=== PATIENT | female | born 1945 | race Asian ===

== ENCOUNTER → 2019-07-07 | Outpatient (CLI) | payer MEDICAID ==
--- NOTE | 2019-07-07 10:16 | CARD ---
MR#: [id number] Date of Study: 07/07/2019 Ordering Physician: INGRID DUNHAM, Referring Physician: INGRID DUNHAM, Tech: Anu Hunt KARLA APPROVED REPORT EXAM: Two-dimensional and M-mode echocardiogram with Doppler and color Doppler. Other Information Quality : Good Rhythm : Atrial Fibrillation INDICATION Non-Ischemic Cardiomyopathy, ICD 2D DIMENSIONS RVDd2.0 (2.9-3.5cm)Left Atrium(2D)3.2 (1.6-4.0cm) IVSd0.7 (0.7-1.1cm)Aortic Root(2D)2.6 (2.0-3.7cm) LVDd5.5 (3.9-5.9cm)LVOT Diameter2.1 (1.8-2.4cm) PWd0.7 (0.7-1.1cm)LVDs3.7 (2.5-4.0cm) FS (%) 33.1 %SV90.8 ml LVEF(%)61.1 (>50%) Aortic Valve AoV Peak Jt.120.4cm/sAoV VTI21.8cm AO Peak GR.5.8mmHgLVOT Peak Jt.74.1cm/s LVOT VTI 15.35cmAO Mean GR.3mmHg VIJAY (VMAX)2.69df6ESW (VTI)2.47cm2 Mitral Valve MV E Eergrecb385.9cm/sMV DECEL UHCV779ar MV BZD00eaBXS (PHT)7.15cm2 TDI E/Lateral E'22.1E/Medial E'29.7 Tricuspid Valve TR P. Mawpfeee376do/sRAP BTHMFAKW7gkSq TR Peak Gr.77chLlUQGI68ocKc Pulmonary Vein S1 Domuheyp49.8cm/sD2 Tnazmdfe67.1cm/s LEFT VENTRICLE The left ventricle is normal size. There is normal left ventricular wall thickness. The left ventricu lar systolic function is normal and the ejection fraction is within normal range. The Ejection Fracti on is 55-60%. Apical motion consistent with pacemaker activation. The left ventricular diastolic func tion and filling is normal for age. No left ventricle thrombus noted on this study. RIGHT VENTRICLE The right ventricle is normal size. The right ventricular systolic function is normal. There is a pac emaker lead in the right ventricle. ATRIA The left atrium size is normal. The right atrium size is normal. A pacemaker is seen in the right atr ium consistent with history. The interatrial septum is intact with no evidence for an atrial septal d efect or patent foramen ovale as noted on 2-D or Doppler imaging. AORTIC VALVE The aortic valve is calcified but opens well. Doppler and Color Flow revealed no significant aortic r egurgitation. There is no significant aortic valvular stenosis. MITRAL VALVE The mitral valve is calcified but opens well. There is no evidence of mitral valve prolapse. There is no mitral valve stenosis. Doppler and Color-flow revealed mild mitral regurgitation. TRICUSPID VALVE The tricuspid valve is normal in structure and function. Doppler and Color Flow revealed trace to mil d tricuspid regurgitation. The PA pressure was estimated at 27 mmHg. There is no tricuspid valve sten osis. PULMONIC VALVE The pulmonic valve is not well visualized. Doppler and Color Flow revealed no pulmonic valvular regur gitation. There is no pulmonic valvular stenosis. GREAT VESSELS The aortic root is normal in size. The ascending aorta is normal in size. The IVC is normal in size a nd collapses >50% with inspiration. PERICARDIAL EFFUSION There is no evidence of significant pericardial effusion. Critical Notification Critical Value: No <Conclusion> The left ventricular systolic function is normal and the ejection fraction is within normal range. Th e Ejection Fraction is 55-60%. Apical motion consistent with pacemaker activation. There is a pacemaker lead in the right ventricle. Signed by : Ingrid Dunham, Electronically Approved : 07/07/2019 10:15:56
== END | disposition home or self-care (01) ==
LOC: MERGE 09:00 → ECHO 09:03
PROVIDERS: ATTEND Internal Medicine Cardiovascular Disease
DX: I08.3 Combined rheumatic disorders of mitral, aortic and tricuspid valves (principal); I42.9 Cardiomyopathy, unspecified; I48.91 Unspecified atrial fibrillation; Z95.0 Presence of cardiac pacemaker
CPT/HCPCS: 93306

== ENCOUNTER → 2019-07-24 | Outpatient (CLI) | payer MEDICAID ==
[~2019-07-24] MED LIST: CARV25TA PO; METF10007 PO; SIMV40TA18 PO
--- NOTE | 2019-07-24 17:06 | RAD ---
CT study of the abdomen and pelvis without contrast Clinical indications: Right upper quadrant pain. COMPARISON: None available. TECHNIQUE: Noncontrast helical CT scanning of the abdomen and pelvis was performed. Without contrast, sensitivity to detect organ pathology and GI tract pathology is decreased. PQRS compliance Statement One or more of the following individualized dose reduction techniques were utilized for this study: 1. Automated exposure control 2. Adjustment of the mA and/or kV according to patient size 3. Use of iterative reconstruction technique FINDINGS: The liver and spleen and pancreas are unremarkable on this noncontrast study. Small gallstones are seen within the fundus of the gallbladder. The gallbladder is distended measuring almost 14 cm in length. No gallbladder wall thickening is evident. No extrahepatic biliary ductal dilatation is seen. No adrenal mass is evident. No hydronephrosis or hydroureter or urinary tract stone is evident. Urinary bladder wall is smooth. No renal mass is seen on either side on this noncontrast study. Sigmoid diverticulosis is seen without diverticulitis. There are no CT findings of appendicitis. Terminal ileum is unremarkable. No obstructive bowel pattern is evident. No free air or free fluid or mesenteric edema is evident. No lung base consolidation is evident. No lytic process is seen. Surgical hardware is seen within the proximal femur. IMPRESSION: Distended gallbladder with cholelithiasis. Electronically signed by: Stephen Mclain MD (07/24/2019 5:03 PM) [id number]
== END | disposition home or self-care (01) ==
LOC: CT 16:14
PROVIDERS: ATTEND Nurse Practitioner Gerontology
DX: K80.20 Calculus of gallbladder without cholecystitis without obstruction (principal); K82.8 Other specified diseases of gallbladder; K57.30 Diverticulosis of large intestine without perforation or abscess without bleeding
CPT/HCPCS: 74176

== ENCOUNTER 2019-08-07 08:44 | Outpatient (CLI) | payer MEDICAID ==
[~2019-08-07] VITALS: Ht 157.5 cm; Wt 62.6 kg
[2019-08-07] VITALS (11 sets, daily range): BP systolic 112–173; BP diastolic 66–86
[2019-08-07] MEDS ORDERED: BACITRACIN 50,000 UNIT in IV NORMAL SALINE 250ML 250 ML IRR ONE (09:00)
[2019-08-07] MEDS ORDERED: CARV25TA PO (09:05)
[2019-08-07] MEDS ORDERED: SIMV40TA3 PO (09:05)
[2019-08-07] MEDS ORDERED: METF10007 PO (09:05)
[2019-08-07 09:21] LABS: CALCIUM 9.3 mg/dL (8.5-10.1); CREATININE 0.8 mg/dL (0.6-1.0); GFR 69.9; HEMATOCRIT 41.8 % (36.0-47.0); HEMOGLOBIN 14.1 g/dL (12.0-15.5); RED BLOOD COUNT 4.5 x10^6/uL (3.50-5.40); RED CELL DISTRIBUTION WIDTH 13.6 % (11.5-14.5); WHITE BLOOD COUNT 7.6 x10^3/uL (4.0-11.0)
[2019-08-07 09:34] LABS: PROTHROMBIN TIME PATIENT 12.6 SEC (11.7-14.0)
--- NOTE | 2019-08-07 09:36 | EKG ---
[facility] [address] [place] [address] Test Date: 2019-08-07 Test Time: 09:26:11 Pat Name: GORGE CONKLIN Department: Room: Gender: F Manager Office: [facility] : 1945 Requested By: INGRID DUNHAM Order Number: [id number] Reading MD: Measurements Intervals [place] Rate: 88 P: AR: QRS: -45 QRSD: 94 T: 34 QT: 416 QTc: 507 Interpretive Statements ACCELERATED JUNCTIONAL RHYTHM ABNORMAL LEFT AXIS DEVIATION LEFT ANTERIOR FASCICULAR BLOCK CONSIDER LEFT VENTRICULAR HYPERTROPHY PROLONGED QT ABNORMAL ECG RI6.01 Unconfirmed report No previous ECG available for comparison
[2019-08-07] MEDS ORDERED: LIDOCAINE 2%/EPI 1:100,000 20 ML VIAL. ONE (10:01)
[2019-08-07] MEDS ORDERED: fentaNYL PF VIAL 100 MCG/2 ML VIAL ONE (10:15)
[2019-08-07] MEDS ORDERED: MIDAZOLAM HCL/PF 2 MG/2 ML VIAL. ONE (10:15)
[2019-08-07] MEDS ORDERED: fentaNYL PF VIAL 100 MCG/2 ML VIAL IV ONE (10:45)
[2019-08-07] MEDS ORDERED: LIDOCAINE 2%/EPI 1:100,000 20 ML VIAL. IJ ONE (10:45)
[2019-08-07] MEDS ORDERED: MIDAZOLAM HCL/PF 2 MG/2 ML VIAL. IV ONE (10:45)
--- NOTE | 2019-08-07 11:28 | PDOC ---
MODERATE SEDATION ASSESSMENT RISKS/ALTERNATIVES Risks/Alternatives Risks and alternatives of this type of sedation and procedure discussed with: RISK/ALTERNATIVES: Patient H & P ON CHART H & P H & P on chart and reviewed for co-morbid conditions and appropriate labs. H&P ON CHART: Yes STATUS PREG STATUS ASSESSED: N/A MEDS/ALLERGIES REVIEWED Meds/Allergies Reviewed Medications and Allergies including time and route of recently administered narcotics and sedatives. MEDS/ALLERGIES REVIEWED: Yes ASA RATING ASA RATING: III AIRWAY ASSESSMENT Airway Assessment Airway patency, oral function limitations, presence of caps, crowns, dentures, partials, and ability to extend neck assessed. AIRWAY ASSESSMENT: Yes MALLAMPATI SCORE MALLAMPATI SCORE: II PRE-SEDATION ASSESSMENT PRE-SEDATION ASSESSMENT: Yes HAKEEM العراقي MD Aug 07, 2019 11:28
[2019-08-07] MEDS ORDERED: NO ANTICOAGULANT THERAPY. MC PRN (11:30)
--- NOTE | 2019-08-07 11:34 | CARD ---
MR#: [id number] Date of Study: 08/07/2019 Ordering Physician: INGRID DUNHAM, Referring Physician: INGRID DUNHAM, Tech: APPROVED REPORT PROCEDURES Successful Medtronic single-chamber automated implantable cardioverter defibrillator generator change FLOURO TIME 0.1 MINUTES DOSE .26 gycm2 MODERATE SEDATION 39 MINUTES INDICATIONS Nonischemic cardiomyopathy s/p AICD implantation presenting with battery depletion PROCEDURE After explaining the risks, benefits, and alternative options, informed consent was obtained from the patient. The patient was brought to the cardiac catheterization lab and the left chest and shoulder were prepp ed and draped in a sterile manner. 30 mL of 2% lidocaine was infiltrated into the skin and subcutaneous tissues for local anesthesia. An incision was made over the previous scar and using blunt dissection and cautery the pocket was opene d, the capsule exposed and opened and the previously placed generator removed from the pocket. The ri ght ventricular lead was detached from the generator, interrogated, found to functioning well and maggi ttached to a Medtronic single chamber AICD generator model [id number] serial number [id number]. this was placed in the pocket that was subsequently closed in 3 layers. Hemostasis was secured. Patient terrie ated the procedure well. There were no immediate complications. CONCLUSION Successful Medtronic AICD generator change for battery depletion. Signed by : Carter Moreira, Electronically Approved : 08/07/2019 11:33:35
--- NOTE | 2019-08-07 14:23 | NUR ---
Discharge Note: GORGE CONKLIN Discharge instructions and discharge home medications reviewed with Patient and a copy given. All questions have been answered and understanding verbalized. The following instructions and handouts were given: Moderate sedation, incision care Discontinued lines and drains: Peripheral IV intact. Patient discharged to Home or Self Care with Family Member via Wheelchair
== END 2019-08-07 14:15 | disposition home or self-care (01) ==
LOC: CCL 08:44
PROVIDERS: ATTEND Internal Medicine Cardiovascular Disease
DX: T82.121A Displacement of cardiac pulse generator (battery), initial encounter (principal); I11.0 Hypertensive heart disease with heart failure; I50.9 Heart failure, unspecified; M10.9 Gout, unspecified; Z87.39 Personal history of other diseases of the musculoskeletal system and connective tissue; Z95.810 Presence of automatic (implantable) cardiac defibrillator; Z87.891 Personal history of nicotine dependence; Y83.8 Other surgical procedures as the cause of abnormal reaction of the patient, or of later complication, without mention of misadventure at the time of the procedure; Y92.89 Other specified places as the place of occurrence of the external cause; Z79.01 Long term (current) use of anticoagulants
CPT/HCPCS: 33262; 36415; 80048; 85027; 85610; 93005; 99152; 99153; C1722; J0690; J2250; J3010; J3490; J7050; J7030

== ENCOUNTER → 2019-08-11 | Outpatient (CLI) | payer MEDICAID ==
[2019-08-07 13:55] VITALS: BP 112/68
[~2019-08-11] MED LIST changes: -SIMV40TA18 PO; +SIMV40TA3 PO
--- NOTE | 2019-08-11 15:45 | RAD ---
EXAM: Chest, 2 views HISTORY: Abnormal tuberculin skin test. COMPARISON: None. FINDINGS: 2 views of the chest are obtained. There is no infiltrate, pleural effusion or pneumothorax. There is nodular opacity overlying the right upper lobe likely due to a prominent first rib end. There is suspected left bilateral basilar atelectasis or scarring. The heart is normal in size. There is a cardiac pacemaker defibrillator in expected position. There is hyperinflation due to inspiratory effort or emphysema. There are chronic appearing thoracic wedge compression fractures. IMPRESSION: No acute pulmonary finding. Electronically signed by: Merlyn Garrett MD (08/11/2019 3:42 PM) [place] [id number]
== END | disposition home or self-care (01) ==
LOC: RAD 14:19
PROVIDERS: ATTEND Nurse Practitioner Gerontology
DX: R76.11 Nonspecific reaction to tuberculin skin test without active tuberculosis (principal)
CPT/HCPCS: 71046

== ENCOUNTER → 2019-11-06 | Outpatient (CLI) | payer MEDICAID ==
[2019-08-07 13:55] VITALS: BP 112/68
[~2019-11-06] MED LIST changes: +SIMV40TA18 PO; -SIMV40TA3 PO
--- NOTE | 2019-11-06 19:53 | KCIC ---
Bilateral digital screening mammograms: Reason for examination: Routine screening. Comparison is made to previous study dated 03/24/2008. Interpretation was made with the benefit of CAD. A pacemaker is present on the left. The skin and nipples show no abnormalities. No abnormal axillary lymph nodes are seen. The breast parenchyma shows scattered fibroglandular density. (Breast density: Category B.) There are no dominant masses, suspicious calcifications or architectural distortions. Impression: No evidence of malignancy. Recommend routine screening. BI-RADS Category 1: Negative. "Our facility is accredited by the [employer] Mammography Program." This patient's information has been entered into a reminder system for the patient to be notified with the results of her examination and a target date for the next mammogram. Electronically signed by: Jenna Perez MD (11/06/2019 7:50 PM) [id number]
== END | disposition home or self-care (01) ==
LOC: KCIC MAMMO 15:31
PROVIDERS: ATTEND Family Medicine
DX: Z12.31 Encounter for screening mammogram for malignant neoplasm of breast (principal)
CPT/HCPCS: 77067

== ENCOUNTER 2019-12-01 06:31 | Day surgery (SDC) | payer MEDICAID ==
[~2019-12-01] VITALS: Ht 152.4 cm; Wt 61.5 kg
[~2019-12-01 06:31] MED LIST changes: +ACETAMINOPHEN 500 MG TABLET PO ONE; +ceFAZolin SODIUM IV Push 1 GM VIAL. IVP ONE
[2019-12-01] MEDS ORDERED: HYDROmorphone 2 MG/ML VIAL IV PRN (07:00)
[2019-12-01] MEDS ORDERED: IV RINGERS,LACTATED 1000ML 1,000 ML IV SCH (07:00)
[2019-12-01] MEDS ORDERED: fentaNYL PF VIAL 100 MCG/2 ML VIAL IV PRN (07:00)
[2019-12-01] MEDS ORDERED: MORPHINE SULFATE 2 MG/ML VIAL. IV PRN (07:00)
[2019-12-01] MEDS ORDERED: LIDOCAINE 1% PF 2 ML VIAL. ID PRN (07:00)
[2019-12-01] MEDS ORDERED: PROCHLORPERAZINE 10 MG/2 ML VIAL. IV PRN (07:00)
[2019-12-01] MEDS ORDERED: ONDANSETRON PF 4 MG/2 ML VIAL. IV PRN (07:00)
[2019-12-01] MEDS ORDERED: INSULIN LISPRO 100 UNIT/ML 3ML VIAL for OP,RR ONLY. SQ PRN (07:00)
[2019-12-01] MEDS ORDERED: BUPIVACAINE-EPI 0.25%-1:200000 MPF 30 ML VIAL. ONE (07:13)
[2019-12-01] MEDS ORDERED: IOHEXOL 300 MG/ML 50 ML VIAL. ONE (07:14)
[2019-12-01] MEDS ORDERED: SURGICEL HEMOSTAT 4X8 EACH. ONE (07:14)
[2019-12-01 07:24] LABS: CALCIUM 9.1 mg/dL (8.5-10.1); GFR 54.1
[2019-12-01] MEDS ORDERED: fentaNYL PF VIAL 100 MCG/2 ML VIAL ONE (07:27)
[2019-12-01] MEDS ORDERED: ROCURONIUM 50 MG/5 ML VIAL. ONE (07:27)
[2019-12-01] MEDS ORDERED: PROPOFOL 20 ML IV ONE (07:27)
[2019-12-01] MEDS ORDERED: DEXAMETHASONE SOD PHOS 4 MG/ML VIAL ONE (07:27)
[2019-12-01] MEDS ORDERED: ONDANSETRON PF 4 MG/2 ML VIAL. ONE (07:27)
[2019-12-01] MEDS ORDERED: LIDOCAINE 2% PF 5 ML VIAL. ONE (07:27)
[2019-12-01 07:30] LABS: ALBUMIN/GLOBULIN RATIO 1.1 (1.0-1.7); TOTAL BILIRUBIN 0.5 mg/dL (0.2-1.0); TOTAL PROTEIN 7.5 g/dL (6.4-8.2)
[2019-12-01 07:36] LABS: BASO % 1 % (0-3); EOS # 0.2 x10^3/uL (0.0-0.7); EOS % 4 % (0-3); HEMATOCRIT 41.2 % (36.0-47.0); HEMOGLOBIN 13.9 g/dL (12.0-15.5); LYMPH # 1.7 x10^3/uL (1.0-4.8); LYMPH % 32 % (24-48); MEAN CORPUSCULAR HEMOGLOBIN 32 pg (25-35); MEAN CORPUSCULAR HGB CONC 34 g/dL (31-37); MEAN CORPUSCULAR VOLUME 94 fL (79-100); MONO # 0.4 x10^3/uL (0.0-1.1); MONO % 8 % (0-9); NEUT # 2.9 x10^3/uL (1.8-7.7); NEUT % 56 % (31-73); PLATELET COUNT 239 x10^3/uL (140-400); RED BLOOD COUNT 4.39 x10^6/uL (3.50-5.40); RED CELL DISTRIBUTION WIDTH 13.5 % (11.5-14.5); WHITE BLOOD COUNT 5.3 x10^3/uL (4.0-11.0)
--- NOTE | 2019-12-01 08:03 | EKG ---
[facility] [address] [place] [address] Test Date: 2019-12-01 Test Time: 07:50:00 Pat Name: GORGE CONKLIN Department: Room: Gender: F Ui Programmer: MAIRBEL : 1945 Requested By: BRIANDA MCGOVERN Order Number: [id number] Reading MD: Measurements Intervals [place] Rate: 75 P: 47 MN: 222 QRS: -38 QRSD: 96 T: 14 QT: 374 QTc: 420 Interpretive Statements SINUS RHYTHM PROLONGED MN INTERVAL ABNORMAL LEFT AXIS DEVIATION LEFT ANTERIOR FASCICULAR BLOCK CONSIDER LEFT VENTRICULAR HYPERTROPHY ABNORMAL ECG RI6.01 Compared to ECG 08/07/2019 09:26:11 First degree AV block now present Left-axis deviation now present Left anterior fascicular block now present Prolonged QT interval no longer present
[2019-12-01] MEDS ORDERED: NEOSTIGMINE METHYLSULFATE 5 MG/5 ML SYRINGE. ONE (08:46)
[2019-12-01] MEDS ORDERED: GLYCOPYRROLATE 1 MG/5 ML VIAL. ONE (08:46)
[2019-12-01] MEDS ORDERED: SEVOFLURANE 31 TO 60 MINUTES. IH ONE (08:48)
--- NOTE | 2019-12-01 08:50 | PDOC4 ---
Operative Note Operative Note Date: 12/01/2019 Preoperative diagnosis: Chronic cholecystitis Postoperative diagnosis: Same Procedure: Laparoscopic cholecystectomy Surgeon: William Specimen: Gallbladder Dictation: Patient is a 74-year-old female who's had right upper quadrant abdominal pain postprandial nausea and ultrasound showing gallstones. The proc edure of laparoscopic cholecystectomy was explained to the patient and her family in detail risks benefits were also discussed including bleeding infection injury to intra-abdominal contents possibly necessitating further or open operations alternatives to this procedure also discussed with the patient who seemed to understand and gave both verbal and written consent had the procedure performed. Patient was taken to the operating room placed in supine position general anesthesia was initiated once patient was sleep and intubated her abdomen was prepped and draped usual sterile fashion using ChloraPrep. An area just below the umbilicus was injected with quarter percent Marcaine with epinephrine incision was made with an 11 blade scalpel and a varies needle was placed within the abdomen creating pneumoperitoneum once this was complete 11 mm port was placed and a 5 mm camera was placed within the abdomen and inspected no other abdomen maladies were noted. A 5 mm port was placed in the epigastrium a 5 mm port was placed in the right mid abdomen and a port was placed in the right lateral abdomen. The dome of the gallbladder is grasped retracted cephalad the infundibulum of gallbladder is grasped retracted laterally exposing the triangle adherent tissues of the triangle were taken down with blunt and sharp dissection exposing the cystic duct and cystic artery both were doubly clipped and tra nsected the gallbladder was taken off the liver with hook electrocautery placed in Endo Catch bag and removed from the umbilicus right upper quadrant was irrigated and suctioned dry hemostasis deemed to be appropriate and the pneumoperitoneum was reduced all ports removed the fascial defect at the umbilicus was closed with a ecvnan-xs-nwakp 0 Vicryl suture and the skin was reapproximated at the port sites with 40 subarticular Monocryl Mastisol Steri- Strips and island dressings were applied. Patient was awakened and excavated in the operating room taken to recovery in stable condition all sponge instrument needle counts listed as correct estimated blood loss 5 mL GRACIELA ARMSTRONG MD Dec 01, 2019 08:50
--- NOTE | 2019-12-01 08:52 | DISCH ---
DISCHARGE INSTRUCTIONS Condition on Discharge Condition on Discharge: Stable Activity After Discharge Activity Instructions for Disc: Resume previous activity, Avoid exertion Other activity instructions: no lifting more than 20 pounds for 2 weeks Diet after Discharge Diet after Discharge: Low Fat Wound Incision Care Other wound/incision instructi: May shower in 24 hours Contacting the [place]Boston after DC Call your doctor for: If your condition worsens Follow-Up Follow up with: Dr. Armstrong in 2 weeks GRACIELA ARMSTRONG MD Dec 01, 2019 08:52
[2019-12-01] MEDS ORDERED: HYDR-3164 PO (08:59)
[2019-12-01] MEDS ORDERED: HYDROcodone/APAP 5/325MG 1 TAB TABLET PO ONE ×2 (09:20)
[2019-12-01] MEDS: fentaNYL PF VIAL 100 MCG/2 ML VIAL IV PRN ×2 (09:33→09:46)
[2019-12-01 10:05] VITALS: BP 142/70
--- NOTE | 2019-12-04 15:07 | PATHOLOGY ---
[facility] Accession Number: [id number] . 01 Material submitted: . gallbladder - GALLBLADDER AND CONTENTS . 01 Clinical history: . Cholecystitis with cholelithiasis . 02 Diagnosis: Gallbladder, laparoscopic cholecystectomy: - Chronic follicular cholecystitis. - Reactive changes of gallbladder neck lymph node. (JPM:[facility] 12/04/2019) [facility] 12/04/2019 1255 Local . 02 Comment: There are no calculi identified within the gallbladder lumen or specimen container. There is no evidence of malignancy. (JPM:[facility] 12/04/2019) . 02 Electronically signed: . Rene Holguin MD, Pathologist NPI- [id number] . 01 Gross description: . The specimen is received in formalin, labeled "Angela Novanishrio, gallbladder and contents". Received is a previously punctured gallbladder measuring 9.7 x 2.6 x 1.8 cm in greatest dimensions displaying a pink-purple serosal surface. Opening the specimen reveals a velvety, bile-stained mucosa with a gallbladder wall thickness of 0.1 cm. Calculi are not present upon filtration of the gallbladder, and no masses or lesions are noted grossly. Toward the proximal margin, a single lymph node is identified measuring 0.6 cm in maximum dimensions. [employer] sections, to include the proximal margin and lymph node, are submitted in cassette A1. (CAA; 12/01/2019) QA/QA 12/01/2019 1558 Local . 02 Pathologist provided ICD-10: K81.1 . 02 CPT . 624916 Specimen Comment: A courtesy copy of this report has been sent to [phone], [phone] Specimen Comment: [id number] Specimen Comment: Report sent to and Performed at: 01 [facility] [address], [place], [place] [id number] MD Eleazar Limon MD Phone: [phone] Performed at: 02 [facility] [address] [place], [place] [id number] MD Rene Holguin MD Phone: [phone]
== END 2019-12-01 10:45 | disposition home or self-care (01) ==
LOC: SURG 06:31
PROVIDERS: ATTEND Surgery
DX: K81.1 Chronic cholecystitis (principal); E78.00 Pure hypercholesterolemia, unspecified; I11.0 Hypertensive heart disease with heart failure; I50.9 Heart failure, unspecified; Z87.891 Personal history of nicotine dependence; Z87.39 Personal history of other diseases of the musculoskeletal system and connective tissue; Z90.710 Acquired absence of both cervix and uterus; Z98.49 Cataract extraction status, unspecified eye
CPT/HCPCS: 36415; 47562; 80053; 82962; 85025; 93005; A7015; J0690; J1100; J2001; J2405; J2704; J2710; J3010; J3490; J7030; Q9967

== ENCOUNTER → 2020-03-08 | Outpatient (CLI) | payer MEDICAID ==
[~2020-03-08] MED LIST changes: -ACETAMINOPHEN 500 MG TABLET PO ONE; +HYDR-3164 PO; -ceFAZolin SODIUM IV Push 1 GM VIAL. IVP ONE
--- NOTE | 2020-03-08 15:51 | RAD ---
PA and lateral views of the chest. Comparison: 08/11/2019. Indication: Left-sided chest pain Findings: Left-sided pacemaker is unchanged. The heart size is normal. No pneumothorax or effusion. No air space or interstitial disease. The bony structures are intact. Impression: 1. No acute cardiopulmonary process. Electronically signed by: Lio Van MD (03/08/2020 3:48 PM) [id number]
== END | disposition home or self-care (01) ==
LOC: RAD 14:53
PROVIDERS: ATTEND Internal Medicine Cardiovascular Disease
DX: R07.9 Chest pain, unspecified (principal)
CPT/HCPCS: 71046

== ENCOUNTER → 2020-06-10 | Outpatient (CLI) | payer MEDICAID ==
--- NOTE | 2020-06-10 16:52 | KCIC ---
KNEE LEFT 3V DATE: 06/10/2020 12:00 AM INDICATION: Reason: LEFT LATERAL KNEE PAIN S/P FALL 2 WEEKS AGO / Spl. Instructions: / History: COMPARISON: None. FINDINGS: Bones: There is no evidence of acute fracture or dislocation. Joints: Severe medial compartment degenerative changes. Mild lateral and patellofemoral compartment degenerative changes. Small joint effusion. Miscellaneous: None. IMPRESSION: No acute fracture. Small knee joint effusion. Tricompartmental degenerative changes, worst and severe in the medial compartment. Electronically signed by: Gordo Meyer MD (06/10/2020 4:49 PM) [id number]
--- NOTE | 2020-06-10 16:52 | KCIC ---
EXAM: Chest, 2 views. HISTORY: Chest pain. COMPARISON: 03/08/2020 FINDINGS: 2 views of the chest are obtained. There is no infiltrate, pleural effusion or pneumothorax. The heart is normal in size. There is a cardiac pacemaker defibrillator in expected position. There is hyperinflation and there are chronic interstitial changes. There are chronic appearing mild to moderate thoracic compression fractures. IMPRESSION: 1. Emphysema with associated chronic interstitial changes. 2. No acute pulmonary finding. Electronically signed by: Merlyn Garrett MD (06/10/2020 4:49 PM) [facility]
== END ==
LOC: KCIC 15:16
PROVIDERS: ATTEND Family Medicine
DX: M17.12 Unilateral primary osteoarthritis, left knee (principal); M25.462 Effusion, left knee; J98.2 Interstitial emphysema; Z87.891 Personal history of nicotine dependence
CPT/HCPCS: 71046; 73562

== ENCOUNTER → 2020-12-17 | Outpatient (CLI) | payer MEDICAID ==
[~2020-12-17] MED LIST changes: +IOHEXOL 240 MG/ML 50ML VIAL. PO ONE; +IOHEXOL 300 MG/ML 100ML VIAL. IV ONE
--- NOTE | 2020-12-17 14:35 | KCIC ---
CT of the abdomen and pelvis with contrast 12/17/2020 INDICATION: Intermittent right lower quadrant pain COMPARISON STUDY: CT of the abdomen and pelvis without contrast July 24, 2019 TECHNIQUE: Multidetector CT imaging of the abdomen and pelvis performed following the administration of contrast FINDINGS: Visualized lung bases demonstrate no acute. There is been interval cholecystectomy. Liver is otherwise unremarkable. Small air-filled duodenal di verticulum is present. Spleen and adrenal glands are within normal limits. Pancreas is grossly unremarkable. Kidneys are tuan ssly normal. Increased stool throughout the colon. Mild scattered diverticulosis is seen. There is a relative decompression of the hepatic flexure and cecum limiting. The bladder is grossly unremarkabl e.. Diffuse atherosclerotic vascular disease is noted. Patient is status post ORIF left hip. No acute osseous changes are seen. IMPRESSION: 1. No evidence of acute intra-abdominal abnormality 2. Limited evaluation of the cecum and hepatic flexure secondary to relatively decompressed state. Co nsider endoscopy as clinically indicated. 3. Mildly prominent stool throughout the colon. Correlate with history of constipation. CT DOSING PQRS STATEMENT: One or more of the following individualized dose reduction techniques were utilized for this examinat ion: 1. Automated exposure control 2. Adjustment of the mA and/or kV according to patient size 3. Use of iterative reconstruction technique Electronically signed by: Sandip Hope MD (12/17/2020 2:32 PM) [id number]
== END ==
LOC: KCIC CT 08:35
PROVIDERS: ATTEND Family Medicine
DX: K57.10 Diverticulosis of small intestine without perforation or abscess without bleeding (principal); K57.30 Diverticulosis of large intestine without perforation or abscess without bleeding
CPT/HCPCS: 74177; Q9966; Q9967

== ENCOUNTER → 2021-03-11 | Outpatient (CLI) | payer MEDICAID ==
[~2021-03-11] MED LIST changes: -IOHEXOL 240 MG/ML 50ML VIAL. PO ONE; -IOHEXOL 300 MG/ML 100ML VIAL. IV ONE
--- NOTE | 2021-03-11 11:22 | CARD ---
MR#: [id number] Date of Study: 03/11/2021 Ordering Physician: INGRID DUNHAM, Referring Physician: INGRID DUNHAM, Tech: Edna Marx [facility] APPROVED REPORT EXAM: Two-dimensional and M-mode echocardiogram with Doppler and color Doppler. Other Information Quality : Average Rhythm : Pacemaker INDICATION Cardiomyopathy RISK FACTORS Hyperlipidemia Diabetes 2D DIMENSIONS Left Atrium(2D)3.4 (1.6-4.0cm)IVSd1.2 (0.7-1.1cm) Aortic Root(2D)2.9 (2.0-3.7cm)LVDd4.5 (3.9-5.9cm) LVOT Diameter2.1 (1.8-2.4cm)PWd1.3 (0.7-1.1cm) LVDs2.8 (2.5-4.0cm)FS (%) 38.3 % SV63.5 mlLVEF(%)68.7 (>50%) Aortic Valve AoV Peak Jt.115.3cm/sAoV VTI24.4cm AO Peak GR.5.3mmHgLVOT Peak Jt.64.1cm/s AO Mean GR.3mmHgAVA (VMAX)1.87cm2 Pulmonary Valve PV Peak Xbsseqvx14.2cm/s Tricuspid Valve TR P. Preychac368xw/sTR Peak Gr.20mmHg Pulmonary Vein S1 Jsingann81.6cm/sD2 Vmjpteru41.2cm/s PVa lxitfemd487ksln LEFT VENTRICLE The left ventricle is normal size. There is mild concentric left ventricular hypertrophy. The systoli c function is mildly impaired. Estimated ejection fraction 40-45%. There is global hypokinesis of the left ventricle. Transmitral Doppler flow pattern is Grade I-abnormal relaxation pattern. RIGHT VENTRICLE The right ventricle is normal size. There is normal right ventricular wall thickness. The right ventr icular systolic function is normal. ATRIA The left atrium size is normal. The right atrium size is normal. The interatrial septum is intact wit h no evidence for an atrial septal defect or patent foramen ovale as noted on 2-D or Doppler imaging. AORTIC VALVE The aortic valve is normal in structure and function. Doppler and Color Flow revealed no significant aortic regurgitation. There is no significant aortic valvular stenosis. MITRAL VALVE The mitral valve is normal in structure and function. There is no evidence of mitral valve prolapse. There is no mitral valve stenosis. Doppler and Color-flow revealed mild mitral regurgitation. TRICUSPID VALVE The tricuspid valve is normal in structure and function. Doppler and Color Flow revealed trace tricus pid regurgitation. Estimated PAP 23 mmHg. There is no tricuspid valve stenosis. PULMONIC VALVE Doppler and Color Flow revealed no pulmonic valvular regurgitation. There is no pulmonic valvular ayanna nosis. GREAT VESSELS The aortic root is normal in size. The ascending aorta is normal in size. The IVC is normal in size a nd collapses >50% with inspiration. PERICARDIAL EFFUSION There is no evidence of significant pericardial effusion. Critical Notification Critical Value: No <Conclusion> The systolic function is mildly impaired. Estimated ejection fraction 40-45%. There is global hypokinesis of the left ventricle. Signed by : Ingrid Dunham, Electronically Approved : 03/11/2021 11:21:39
== END ==
LOC: ECHO 08:54
PROVIDERS: ATTEND Internal Medicine Cardiovascular Disease
DX: I34.0 Nonrheumatic mitral (valve) insufficiency (principal); I42.9 Cardiomyopathy, unspecified; I51.7 Cardiomegaly
CPT/HCPCS: 93306

== ENCOUNTER → 2022-03-11 | Outpatient (CLI) | payer MEDICAID, OTHER ==
--- NOTE | 2022-03-11 17:09 | CARD ---
MR#: [id number] Date of Study: 03/11/2022 Ordering Physician: INGRID DUNHAM, Referring Physician: INGRID DUNHAM, Tech: Simeon Garcia [facility] APPROVED REPORT EXAM: Two-dimensional and M-mode echocardiogram with Doppler and color Doppler. Other Information Quality : AverageHR: 82bpm Rhythm : NSR INDICATION Cardiomyopathy Non ischemic cardiomyopathy Surgery/Intervention ICD/Pacemaker: 2D DIMENSIONS Left Atrium(2D)3.7 (1.6-4.0cm)IVSd0.7 (0.7-1.1cm) Aortic Root(2D)2.8 (2.0-3.7cm)LVDd3.9 (3.9-5.9cm) LVOT Diameter1.9 (1.8-2.4cm)PWd0.7 (0.7-1.1cm) LA Vhtayx64 (18-58mL)LVDs3.5 (2.5-4.0cm) FS (%) 10.4 %SV15.1 ml Aortic Valve AoV Peak Jt.116.1cm/sAoV VTI22.9cm AO Peak GR.5.4mmHgLVOT Peak Jt.56.7cm/s LVOT VTI 9.46cmAO Mean GR.3mmHg VIJAY (VMAX)1.08jp7JAJ (VTI)1.13cm2 Mitral Valve MV E Zilyjifx46.5cm/sMV DECEL SHSX075wc MV A Erwkysow533.5cm/sMV LUF31dd E/A Ratio0.4MVA (PHT)3.03cm2 TDI E/Lateral E'7.9E/Medial E'11.1 Pulmonary Valve PV Peak Hbkhmpwo434.7cm/sPV Peak Grad.4mmHg Tricuspid Valve TR P. Czbwqyfe460cv/sTR Peak Gr.20mmHg Pulmonary Vein S1 Wmviehac43.8cm/sD2 Iqmfcnje43.6cm/s LEFT VENTRICLE The left ventricle is normal size. There is normal left ventricular wall thickness. LV systolic funct ion is at the lower limits of normal. LV ejection fraction estimated at 50%. Slight septal hypokinesi s. Transmitral Doppler flow pattern is Grade I-abnormal relaxation pattern. No left ventricle thrombu s noted on this study. There is no ventricular septal defect visualized. There is no left ventricular aneurysm. There is no mass noted in the left ventricle. RIGHT VENTRICLE The right ventricle is normal size. There is normal right ventricular wall thickness. The right ventr icular systolic function is normal. Device leads are noted in the right atrium and right ventricle. ATRIA The left atrium size is normal. The right atrium size is normal. The interatrial septum is intact wit h no evidence for an atrial septal defect or patent foramen ovale as noted on 2-D or Doppler imaging. AORTIC VALVE The aortic valve is not well seen. Doppler and Color Flow revealed no significant aortic regurgitatio n. There is no significant aortic valvular stenosis. There is no aortic valvular vegetation. MITRAL VALVE The mitral valve is normal in structure and function. There is no evidence of mitral valve prolapse. There is no mitral valve stenosis. Doppler and Color-flow revealed mild mitral regurgitation. TRICUSPID VALVE The tricuspid valve is normal in structure and function. Doppler and Color Flow revealed trace to mil d tricuspid regurgitation. There is no tricuspid valve prolapse or vegetation. There is no tricuspid valve stenosis. PULMONIC VALVE The pulmonic valve is not well seen. Doppler and Color Flow revealed no pulmonic valvular regurgitati on. There is no pulmonic valvular stenosis. GREAT VESSELS The aortic root is normal in size. The ascending aorta is normal in size. The pulmonary artery is nor mal. The IVC is normal in size and collapses >50% with inspiration. PERICARDIAL EFFUSION There is no pleural effusion. There is no evidence of significant pericardial effusion. Critical Notification Critical Value: No <Conclusion> The left ventricle is normal size. LV systolic function is at the lower limits of normal. LV ejection fraction estimated at 50%. Slight septal hypokinesis. Device leads are noted in the right atrium and right ventricle. Doppler and Color Flow revealed no significant aortic regurgitation. There is no significant aortic valvular stenosis. Doppler and Color-flow revealed mild mitral regurgitation. Doppler and Color Flow revealed trace to mild tricuspid regurgitation. Signed by : Jose Francisco Pratt MD Electronically Approved : 03/11/2022 17:09:16
== END ==
LOC: ECHO 08:55
PROVIDERS: ATTEND Internal Medicine Cardiovascular Disease
DX: I08.1 Rheumatic disorders of both mitral and tricuspid valves (principal); I42.9 Cardiomyopathy, unspecified
CPT/HCPCS: 93306; C8929